=== PATIENT | female | born 1995 | race Caucasian/White ===

== ENCOUNTER 2018-02-15 09:09 | Emergency (ER) | payer OTHER ==
[~2018-02-15] VITALS: Ht 157.4 cm; Wt 68.0 kg
[~2018-02-15 09:09] MED LIST: AMOXICILLIN500 MG PO; BACTRIM DS 8001 TA1 PO; CLARITIN10 MG PO; DICLOFENAC SOD50 MG PO; DIFLUCAN150 MG PO; FLEXERIL5 MG PO; HYDROCODONE BIT1 T11 PO; KEFLEX500 MG PO; MACROBID100 M1 PO; MIRENA52 MG IU; MOTRIN800 MG PO; Motrin,Rufen800 MG PO; NAPROSYN500 MG PO; NKHM; PERCOCET 325 MG1 TA5 PO; PREDNICOT20 MG PO; PRILOSEC20 MG PO; PYRIDIUM200 MG PO; SEPTRA DS 800 M1 TAB PO; TESSALON PERLE100 M1 PO; TRAMADOL HCL50 MG PO; TRIMOX500 MG PO; TYLENOL325 M1 PO; VIBRAMYCIN100 MG PO; VICODIN 5/500 505 MG PO; ZITHROMAX Z PA250 MG PO; ZITHROMAX Z-PA250 MG PO; ZOFRAN ODT4 MG SL
== END 2018-02-15 13:20 | disposition home or self-care (01) ==
LOC: ED 09:09
DX: M79.661 Pain in right lower leg (principal); I72.4 Aneurysm of artery of lower extremity

== ENCOUNTER 2018-06-17 16:03 | Inpatient (IN) | payer OTHER ==
[~2018-06-17] VITALS: Ht 160 cm; Wt 68.6 kg
--- NOTE | ~2018-06-17 | PR ---
[place], [place] PROGRESS NOTE NAME: DEION FALCON [facility] #: [id number] UNIT #: [id number] ROOM: 512 DOCTOR: MITESH LOPEZ MD BIRTHDATE: [birth year] DOS: 06/19/2018 CARDIOLOGY PROGRESS NOTE SUBJECTIVE: The patient was seen at her bedside today. No family was in attendance. She was seen on 06/19/2018 for followup of bradycardia. She states that she was noted to be hypotensive overnight. She was given fluids. She states that she was feeling lightheaded when she got up to the bathroom, but denies falling or syncope. Her monitor does show that she still has episodes of sinus bradycardia and sinus arrhythmia. Her low rate in the last 24 hours was 34 beats per minute. There were no prolonged pauses. PHYSICAL EXAMINATION: VITAL SIGNS: Her pulse is 54 and regular, blood pressure is 114/65. She is afebrile. She weighs 68.6 kilograms. NECK: Supple. She has no jugular distention. Carotids are full. LUNGS: Respirations are unlabored. CHEST: Clear. HEART: Has a regular rhythm without murmurs, rubs or gallops. EXTREMITIES: Showed no edema. Her monitor today shows sinus rhythm, sinus bradycardia, sinus arrhythmia, but no prolonged pauses or SVT. LABORATORY DATA: Hemoglobin is 13.7, white count 9000, platelet count 265,000. D-dimer is normal at 0.4. Sodium is 142, potassium 4.1, chloride 108, CO2 26, BUN 12, creatinine 0.91. TSH is 1.66 with free T4 1.03. Troponin levels were normal. IMPRESSION: 1. 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 2. History of deep venous thrombosis with reported clotting disorder. The patient is unaware of the nature of the clotting disorder and has been noncompliant with recommendations for anticoagulation therapy. 3. Palpitations. 4. Bradycardia. 5. History of cocaine and cannabis use. PLAN: We will review her echocardiogram when it is available to evaluate her for structural heart disease. As noted yesterday, she should avoid cocaine use. We will avoid the use of rate slowing medications in her management. If her echocardiogram shows no structural heart disease, I think that she should be discharged to home and an outpatient 30-day event recorder will be arranged. I thank the hospitalist physicians for asking our advice regarding her care. [place], [place] PROGRESS NOTE NAME: DEION FALCON UNIT #: [id number] ROOM: 512 DOCTOR: JESSICA SHAW,MITESH BIRTHDATE: [birth year] MITESH LOPEZ MD CM:PNRANJITH [id number] MITESH LOPEZ MD 06/19/18 1716 interface
--- NOTE | ~2018-06-17 | CON ---
[place], [place] REPORT OF CONSULTATION NAME[facility]CON [facility] [id number] UNIT #: [id number] ROOM: 512 DOCTOR: MITESH LOPEZ MD BIRTHDATE: [birth year] DOS: 06/18/2018 CARDIOLOGY CONSULTATION REASON FOR CONSULTATION: Slow heartbeat, palpitations and remote history of syncope. HISTORY OF PRESENT ILLNESS: The patient is a 22-year-old woman who has no previously documented history of heart disease. She was seen in her hospital room on 06/18/2018 with a friend in attendance. She states that she has had a long history of near syncope and syncope, especially in her teenagers. This has resolved and she has not passed out in over 5 years. She does, however, feel episodes of palpitations. She came into the hospital on this occasion because her knee was hurting. The patient does have a femoral artery aneurysm from a remote injury and she was worried that the aneurysm had grown or had broken. In the Emergency Room, she was noted to be bradycardic with heart rates around 40. She was admitted to the hospital for further observation and management. PAST MEDICAL HISTORY: Includes: 1. Severe accident in 2016 resulting in injury to her right knee with subsequent formation of a right distal superficial femoral aneurysm. 2. Right lower extremity deep venous thrombosis in 2016. The patient did undergo blood testing and was told that she had a clotting disorder. She was prescribed warfarin, but never took the drug. She cannot recall what the name of the clotting disorder was. 3. History of syncope as a teenager. 4. History of drug use including marijuana and cocaine. MEDICATIONS: The patient is on no outpatient prescribed medications. ALLERGIES: She has no known drug allergies. REVIEW OF SYSTEMS: The patient denies diplopia, loss of vision. She denies syncope, but has had lightheadedness. She denies focal weakness. She denies nausea or vomiting. She denies fevers, chills, sweats or recent weight change. Denies hemoptysis or hematemesis. She denies skin rashes. She denies any change in bowel or bladder habits. Denies blood in her stools or urine. She denies orthopnea or PND. She has had some palpitations, but no chest pain. She denies recent leg swelling. She has had pain in her right knee. The remainder of the review of systems is negative except as noted above. FAMILY HISTORY: Parents are both alive. Her mother has a history of gout, hypothyroidism and lupus. Her father has a history of alcoholic cirrhosis. SOCIAL HISTORY: The patient does use cocaine and cannabis. She smokes a half pack of cigarettes a day. She uses alcohol socially. PHYSICAL EXAMINATION: GENERAL: The patient is well-nourished white female, awake, alert and oriented. VITAL SIGNS: Pulse is 66 and regular, blood pressure is 100/56. She is [place], [place] REPORT OF CONSULTATION NAME: DEION FALCON UNIT #: [id number] ROOM: 512 DOCTOR: MITESH LOPEZ MD BIRTHDATE: [birth year] afebrile. HEENT: Normocephalic and atraumatic. Extraocular muscles are intact. Sclerae are clear. Pupils equal, round and react to light. The oral mucosa is moist. Tongue is midline. NECK: Supple. She has no jugular distention. Carotids are full. There are no bruits. She has no neck or supraclavicular masses. LUNGS: Respirations are unlabored. CHEST: Clear to auscultation and percussion. She has no presacral edema or chest wall tenderness. CARDIOVASCULAR: Her heart has regular rhythm without murmurs, rubs or gallops. The PMI is not displaced. There is no precordial heave, lift or thrill. ABDOMEN: Soft and normally active without masses, organomegaly or bruits. EXTREMITIES: Showed no clubbing, cyanosis or edema. Peripheral pulses are full and equal in the legs bilaterally. DIAGNOSTIC DATA: I reviewed her electrocardiogram, which showed sinus rhythm at a rate of 46 with sinus arrhythmia and early repolarization changes. The IL interval was normal and the QRS duration was normal. Chest x-ray was unremarkable and normal. A CT angiogram of the chest to look for blood clot showed no evidence for acute pulmonary embolism, pneumothorax, pleural effusion or consolidation. Lower extremity ultrasound showed no evidence for DVT. The right distal superficial femoral artery did show a saccular aneurysm measuring 1.2 x 1.2 x 1.7 cm. LABORATORY DATA: Hemoglobin is 13.7, white count 9000, platelet count 265,000. Sodium 142, potassium 4.1, chloride 108, CO2 26, BUN 12, creatinine 0.91. Troponin is unremarkable x 3. TSH is normal at 1.660. Urine drug screen was positive for cocaine and cannabis metabolites. IMPRESSION: 1. Right distal superficial femoral artery aneurysm after accident in 2016. 2. History of deep venous thrombosis with reported clotting disorder. The patient is unaware of the nature of the clotting disorder and has been noncompliant with recommendations for anticoagulation therapy. 3. Palpitations. 4. Bradycardia. 5. History of cannabis and cocaine use. DISCUSSION AND PLAN: The etiology of the patient's bradycardia is not obvious, but objective evidence would indicate that it is not a severe problem. She does not show any evidence of heart block or acute EKG changes. She has not had a syncopal episode in 5 years. It is possible that her bradycardia is a reaction to the cocaine use. Cocaine can cause sinus tachycardia as well as sinus bradycardia in addition to other arrhythmias. It may be that as she is metabolized in the cocaine, her heart rate does decrease. For now, I would avoid the use of any rate slowing medications. She should also avoid cocaine use. We will check an echocardiogram to look for evidence of structural heart disease. If this is normal, then we will have the patient wear [place], [place] REPORT OF CONSULTATION NAME: DEION FALCON UNIT #: [id number] ROOM: 512 DOCTOR: MITESH LOPEZ MD BIRTHDATE: [birth year] a 30-day event recorder. If no severe bradycardia, prolonged pauses, etc. are noted. We would just continue to follow her symptomatically. I thank the hospitalist physicians for asking our advice regarding her care. MITESH LOPEZ MD CM:CONSTR:REPORT OF CONSULTATION 1444 06/18/181956 interface
--- NOTE | ~2018-06-17 | EKG ---
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
[2018-06-17 16:04] VITALS: BP 104/46
[2018-06-17 16:51] LABS: BASO % 0.2 % (0.0-1.0); EOS % 0.3 % (1.0-4.0); HEMATOCRIT 46.4 % (37.0-47.0); HEMOGLOBIN 15.5 g/dl (12.0-16.0); LYMPH # 2.1 10*3/uL (1.3-4.4); LYMPH % 22.6 % (27.0-41.0); MEAN CELL VOLUME 92.6 fl (81.0-99.0); MEAN CORPUSCULAR HGB 30.9 pg (27.0-31.0); MEAN CORPUSCULAR HGB CONC 33.4 g/dl (33.0-37.0); MEAN PLATELET VOLUME 10.5 fl (9.6-12.3); MONO # 0.6 10*3/uL (0.1-1.0); MONO % 6.5 % (3.0-9.0); NEUT # 6.6 10*3/uL (2.3-7.9); NEUT % 70.1 % (47.0-73.0); PLATELET COUNT AUTOMATED 296 10*3/uL (130-400); RED BLOOD COUNT 5.01 10*6/uL (4.10-5.10); RED CELL DISTRI WIDTH 12.7 % (0-14.5); WHITE BLOOD COUNT 9.4 10*3/uL (4.8-10.8)
[2018-06-17 17:01] LABS: INTERNATIONAL NORM RATIO 0.9 (2.0-3.5)
[2018-06-17 17:08] LABS: ALBUMIN 4.4 gm/dl (3.1-4.5); ALKALINE PHOSPHATASE 69 U/L (45-117); BUN 15 mg/dl (7-24); CHLORIDE 104 mmol/L (98-107); CREATININE 1.04 mg/dL (0.55-1.02); POTASSIUM 3.6 mmol/L (3.5-5.1); SGOT/AST 9 IU/L (3-35); SGPT/ALT 17 U/L (12-78); SODIUM 138 mmol/L (136-145); TOTAL PROTEIN 8.3 gm/dL (6.4-8.2)
[2018-06-17 17:09] LABS: TROPONIN I < 0.015 ng/ml (<0.045)
[2018-06-17 17:24] LABS: BILIRUBIN NEGATIVE (NEGATIVE); BLOOD NEGATIVE (NEGATIVE); CLARITY CLEAR (CLEAR); COLOR YELLOW (YELLOW); GLUCOSE NEGATIVE (NEGATIVE); KETONE NEGATIVE (NEGATIVE); LEUKO ESTERASE NEGATIVE (NEGATIVE); NITRITE NEGATIVE (NEGATIVE); PH 6.5 (5.0-9.0); UROBILINOGEN 0.2 E.U./dl (0.2-1.0)
[2018-06-17 17:32] LABS: URINE AMPHETAMINES < 1000 (1000ng/ml); URINE BARBITURATES < 200 (200ng/ml); URINE BENZODIAZEPINES < 200 (200ng/ml); URINE CANNABINOIDS (THC) > 50 (50ng/ml); URINE COCAINE > 300 (300ng/ml); URINE METHADONE < 300 (300ng/ml); URINE OPIATES < 300 (300ng/ml)
[2018-06-17 17:35] LABS: URINE PHENCYCLIDINE < 25 (25ng/ml)
[2018-06-17 17:38] LABS: RBC 0-2 rbc/hpf (0-2); WBC 0-2 wbc/hpf (0-5)
[2018-06-17 18:03] VITALS: BP 103/49
[2018-06-17 19:11] VITALS: BP 104/57
[2018-06-17 19:40] VITALS: BP 105/76
[2018-06-17 20:00] VITALS: BP 105/76
[2018-06-18] VITALS: BP 107/61
[2018-06-18 03:15] LABS: BASO % 0.3 % (0.0-1.0); EOS # 0.1 10*3/uL (0.0-0.4); EOS % 1.3 % (1.0-4.0); HEMOGLOBIN 13.7 g/dl (12.0-16.0); LYMPH # 3.2 10*3/uL (1.3-4.4); LYMPH % 35.9 % (27.0-41.0); MEAN CORPUSCULAR HGB 30.6 pg (27.0-31.0); MEAN CORPUSCULAR HGB CONC 32.6 g/dl (33.0-37.0); MEAN PLATELET VOLUME 10.6 fl (9.6-12.3); MONO # 0.8 10*3/uL (0.1-1.0); MONO % 9.2 % (3.0-9.0); NEUT # 4.8 10*3/uL (2.3-7.9); PLATELET COUNT AUTOMATED 265 10*3/uL (130-400); RED BLOOD COUNT 4.47 10*6/uL (4.10-5.10); RED CELL DISTRI WIDTH 12.6 % (0-14.5)
[2018-06-18 03:35] LABS: BUN 12 mg/dl (7-24); CHLORIDE 108 mmol/L (98-107); CREATININE 0.91 mg/dL (0.55-1.02); POTASSIUM 4.1 mmol/L (3.5-5.1); SODIUM 142 mmol/L (136-145)
[2018-06-18 03:38] LABS: PHOSPHOROUS 3.9 mg/dL (2.5-4.9)
[2018-06-18 03:45] LABS: FREE T4 1.03 ng/dl (0.76-1.46)
[2018-06-18 08:00] VITALS: BP 98/62
[2018-06-18 12:00] VITALS: BP 100/56
[2018-06-18 16:00] VITALS: BP 107/67
[2018-06-18 20:00] VITALS: BP 101/59
[2018-06-19] VITALS: BP 88/52
[2018-06-19 06:00] VITALS: BP 108/60; BP 114/65
[2018-06-19 12:00] VITALS: BP 104/55
[2018-06-19 16:00] VITALS: BP 111/50
== END 2018-06-19 20:45 | disposition left against medical advice (07) | DRG 918 ==
LOC: ED 16:03 → 5E 18:10 → EDHOLD 18:10 → 5E 19:09
PROVIDERS: Internal Medicine; Physician Assistant
DX: T40.5X1A Poisoning by cocaine, accidental (unintentional), initial encounter (principal); R00.1 Bradycardia, unspecified; M79.604 Pain in right leg; R07.9 Chest pain, unspecified; I72.4 Aneurysm of artery of lower extremity; E83.41 Hypermagnesemia; Z53.21 Procedure and treatment not carried out due to patient leaving prior to being seen by health care provider; F41.9 Anxiety disorder, unspecified; F17.200 Nicotine dependence, unspecified, uncomplicated; I95.9 Hypotension, unspecified; R00.2 Palpitations; Y92.89 Other specified places as the place of occurrence of the external cause; Z86.718 Personal history of other venous thrombosis and embolism; Z84.89 Family history of other specified conditions; Z81.1 Family history of alcohol abuse and dependence; Z71.6 Tobacco abuse counseling; Z91.14 Patient's other noncompliance with medication regimen